=== PATIENT | female | born 1980 | race Caucasian/White ===

== ENCOUNTER 2018-12-10 21:52 | Emergency (ER) | payer BC, OTHER ==
[2018-12-10] MEDS ORDERED: Ibuprofen 800 MG TAB ONE (22:22)
== END 2018-12-10 22:29 | disposition home or self-care (01) ==
LOC: EEVIPCON 21:52 → MADERS 21:52
DX: M70.842 Other soft tissue disorders related to use, overuse and pressure, left hand (principal); I10 Essential (primary) hypertension; F17.210 Nicotine dependence, cigarettes, uncomplicated
CPT/HCPCS: 93005